=== PATIENT | male | born 1980 | race Caucasian/White ===

== ENCOUNTER 2022-09-07 07:06 | Outpatient (CLI) | payer BC, SELFPAY ==
--- NOTE | ~2022-09-07 | CT_ITS ---
EXAMINATION: CT abdomen pelvis w con DATE: 09/07/2022 08:05 INDICATION: Right lower quadrant abdominal pain for 2 weeks TECHNIQUE: Computed tomography (CT) of the abdomen and pelvis was performed with 100 CC Omnipaque 350 intravenous contrast. Automated exposure control and iterative reconstruction technique were employe d. Exam dose: 1267.34 mGy-cm total exam DLP. COMPARISON: None. FINDINGS: The lung bases are clear. Normal heart size. No pericardial or pleural effusion. Diffuse hepatic steatosis. No hepatic, splenic, pancreatic, adrenal space-occupying mass lesion is de tected. There is an approximately 7 mm probable cyst of each kidney. No urinary tract calculus or hyd roureteronephrosis. There is mild prostate enlargement and calcification. The urinary bladder is unre markable. Normal caliber of the abdominal aorta. No intraperitoneal or retroperitoneal or pelvic mass lesion or adenopathy or ascites. Normal appendix, draped around the inferior aspect of the right hepatic lobe. No bowel obstruction, b owel wall thickening, pneumatosis or intraperitoneal free air is detected. There is a small sliding hiatal hernia. Very small fat-containing umbilical hernia. No suspicious osteolytic or osteoblastic lesions. IMPRESSION: Normal appendix Small sliding hiatal hernia Small probable renal cysts Reviewed, dictated and finalized at [facility] Reviewed, dictated and finalized at [facility].
== END 2022-09-07 07:07 | disposition home or self-care (01) ==
PROVIDERS: PCP Family Medicine; Visit Provider Physician Assistant
DX: R10.31 Right lower quadrant pain (principal); K44.9 Diaphragmatic hernia without obstruction or gangrene
CPT/HCPCS: 74177; Q9967

== ENCOUNTER 2024-07-07 00:22 | Day surgery (SDC) | payer BC, SELFPAY ==
[2024-06-19 13:30] VITALS: BMI 33.4
[2024-07-07 06:51] VITALS: BP 126/73; PULSE 81; RESP 16; TEMP 36.3; O2SAT 100
[2024-07-07] MEDS: LACTATED RINGERS 1,000 ML 150 ML IV CONT (06:59)
--- NOTE | 2024-07-07 08:00 | PM.HPGS ---
History of Present Illness History of Present Illness Consent: Risks, benefits, and alternatives have been discussed and questions answered. Patient agrees to proceed with procedure. Chief complaint: Epigastric pain, Diaphragmatic hearnia, Dany. Scr. Narrative: Varinder Liu is a 43 year old male here for first egd and colonoscopy, had epigastric pain that has improved with omeprazole. Review of Systems Review of Systems: All systems reviewed & are unremarkable except as noted in HPI and below PMFSH Past Medical History Medical History (Updated 03/29/24 @ 08:57 by Yoli Adams, [employer]MENT ASSISTANT MANAGER[employer]) Encounter for screening colonoscopy Epigastric pain Hiatal hernia Social History Social History Smoking status: Never smoker Alcohol intake: current Drinks per week: 2 Substance use: never Substance use type: does not use Living arrangements: with family Spiritual care concerns: No Meds Home Medications and Allergies Home Medications Medication Instructions Recorded Confirmed Type omeprazole 40 mg capsule,delayed See Rx Instructions .Route 06/01/24 07/07/24 Rx release .COMPLEX #30 caps Allergies Allergy/AdvReac Type Severity Reaction Status Date / Time No Known Allergies Allergy Verified 07/07/24 06:51 Vital Signs Vital Signs - 24 hr 07/07/24 06:51 Temperature 97.4 F L Pulse Rate 81 Respiratory Rate 16 Blood Pressure 126/73 Pulse Oximetry 100 Oxygen Delivery Room Air Exam Const: General: comfortable and no acute distress HENMT: Face/Nose/Sinus: Normal nares present Eyes: General: appearance normal, both eyes and all related structures Neck: Neck: no JVD Resp: Auscultation: clear to auscultation bilaterally Cardio: Rate: regular rate Rhythm: regular rhythm GI: Inspection: non-distended GI Palp: Yes Soft to palpation Skin: General skin exam: normal color Neuro: General: gait normal Speech: normal speech Extrem: General: normal to inspection Psych: Mental Status: mental status grossly normal Assessment and Plan Assessment and plan (1) Epigastric pain: Code(s): R10.13 - Epigastric pain Status: Acute Assessment and Plan: egd with bx (2) Encounter for screening colonoscopy: Code(s): Z12.11 - Encounter for screening for malignant neoplasm of colon Status: Acute Assessment and Plan: colonoscopy
--- NOTE | 2024-07-07 08:16 | SUR.OPER ---
EGD end time: 809, Colonoscopy start time: 815
[2024-07-07 08:30] VITALS: BP 108/74; PULSE 79; RESP 16; O2SAT 98
[2024-07-07 08:40] VITALS: BP 110/77; PULSE 72; RESP 16; O2SAT 100
[2024-07-07 08:50] VITALS: BP 126/69; PULSE 66; RESP 16; O2SAT 99
--- NOTE | 2024-07-14 14:56 | P.PNAN_ITS ---
Anes - Initial Pre Proc Eval Procedure: Operation Date: 07/07/24 08:00 Proposed Procedures p Esophagogastroduodenoscopy&Screen Colon - Moe Traylor MD Date/Time: 07/14/24 14:56 Surgeon: Moe Traylor MD Pre Op Diagnosis: Epigastric pain, Diaphragmatic hearnia, Dany. Scr. Patient Data Age: 43 Gender: M Height: 1.88 m Weight: 115.8 kg Last Vital Signs Temp 97.4 F L 07/07/24 06:51 Pulse 66 07/07/24 08:50 Resp 16 07/07/24 08:50 BP 126/69 07/07/24 08:50 Pulse Ox 99 07/07/24 08:50 O2 Del Method Room Air 07/07/24 08:50 Allergies Allergy/AdvReac Type Severity Reaction Status Date / Time No Known Allergies Allergy Verified 07/07/24 06:51 Home Medications Medication Instructions Recorded Confirmed Type omeprazole 40 mg capsule,delayed See Rx Instructions .Route 07/11/24 Rx release .COMPLEX #30 caps Patient hx anesthesia problems: none Family hx anesthesia problems: none Results Review: All pre-operative results and documents have been reviewed as part of the pre- operative evaluation. [facility] Past Medical History Medical History (Updated 03/29/24 @ 08:57 by CARMELITA Nicole) Encounter for screening colonoscopy Epigastric pain Hiatal hernia Social History Social History Smoking status: Never smoker Alcohol intake: current Drinks per week: 2 Substance use: never Substance use type: does not use Living arrangements: with family Spiritual care concerns: No Anes - Eval Final PreProcedure Day of Procedure 07/14/24 14:56 Patient weight: obese Heart: regular rate and rhythm Lungs: clear to auscultation Airway: Mallampati scale class II Neurological: alert and oriented Last oral intake: >/= 8 hours ASA classification: II Emergent: no Anesthetic plan: proceed Anesthesia type and monitoring: general GIVS and standard monitoring Results Review: All pre-operative results and documents have been reviewed as part of the pre- operative evaluation. Informed Consent: The patient's anesthetic plan and its attendant risks and benefits were discussed with the patient/family/POA. Questions were solicited and answers provided to the satisfaction of the patient/family/POA.
== END 2024-07-07 08:56 | disposition home or self-care (01) ==
PROVIDERS: PCP Nurse Practitioner Family; Referring Provider Nurse Practitioner Family; Visit Provider Internal Medicine Gastroenterology
PROC: 0DJ08ZZ Inspection of Upper Intestinal Tract, Via Natural or Artificial Opening Endoscopic (ICD-10-PCS; CPT 43235; principal; 2024-07-07 08:00)
DX: Z12.11 Encounter for screening for malignant neoplasm of colon (principal); K64.8 Other hemorrhoids; K29.50 Unspecified chronic gastritis without bleeding; K21.9 Gastro-esophageal reflux disease without esophagitis
CPT/HCPCS: 43239; 45378; 88305; J2704; J7120